=== PATIENT | female | born 1975 | race Caucasian/White ===

== ENCOUNTER 2018-06-01 09:44 | Emergency (ER) | payer BC ==
[2018-06-01 10:39] LABS: WHITE BLOOD COUNT 6.2 10^3/ul (4.8-10.8)
[2018-06-01 10:39] LABS: HEMATOCRIT 27.1 % (37.0-47.0); HEMOGLOBIN 8.9 g/dl (12.0-16.0); MEAN CORPUSCULAR HEMOGLOBIN 35.2 pg (29.0-33.0); MEAN CORPUSCULAR HGB CONC 32.8 g/dl (32.0-37.0); MEAN CORPUSCULAR VOLUME 107.1 fl (82.0-101.0); MEAN PLATELET VOLUME 10.7 fl (7.4-10.4); PLATELET COUNT 226 10^3/UL (140-415); RED BLOOD COUNT 2.53 10^6/ul (4.20-5.40); RED CELL DISTRIBUTION WIDTH 15.6 % (11.5-14.5)
[2018-06-01 10:42] LABS: ADD MAN DIFF? YES; POSITIVE DIFF @See below
[2018-06-01 10:56] LABS: ALANINE AMINOTRANSFERASE 30 IU/L (13-69); ALBUMIN 2.1 g/dl (3.3-4.9); ALBUMIN/GLOBULIN RATIO 0.56; ALKALINE PHOSPHATASE 175 IU/L (42-121); ANION GAP 6 (5-13); ASPARTATE AMINO TRANSFERASE 65 IU/L (15-46); BILIRUBIN,INDIRECT 0.3 mg/dl (0-1.1); BILIRUBIN,TOTAL 0.3 mg/dl (0.2-1.3); BLOOD UREA NITROGEN 9 mg/dl (7-20); CALCIUM 7.9 mg/dl (8.4-10.2); CARBON DIOXIDE 30 mmol/L (21-31); CHLORIDE 103 mmol/L (97-110); CREATININE 0.48 mg/dl (0.44-1.00); Estimated GFR > 60 mL/min (>60); GLUCOSE 73 mg/dl (70-220); LIPASE 64 U/L (23-300); POTASSIUM 3.9 mmol/L (3.5-5.1); SODIUM 139 mmol/L (135-144); TOTAL PROTEIN 5.8 g/dl (6.1-8.1)
[2018-06-01 11:01] LABS: ADD UMIC NO; UR ASCORBIC ACID NEGATIVE (NEGATIVE); UR BILIRUBIN (Dip) NEGATIVE (NEGATIVE); UR BLOOD (Dip) NEGATIVE (NEGATIVE); UR CLARITY CLEAR (CLEAR); UR COLOR AMBER (YELLOW); UR GLUCOSE (Dip) NEGATIVE (NEGATIVE); UR KETONES (Dip) NEGATIVE (NEGATIVE); UR LEUKOCYTE ESTERASE (Dip) NEGATIVE Leu/ul (NEGATIVE); UR NITRITE (Dip) NEGATIVE (NEGATIVE); UR SPECIFIC GRAVITY (Dip) 1.021 (1.003-1.030); UR TOTAL PROTEIN (Dip) NEGATIVE (NEGATIVE); UR UROBILINOGEN (Dip) 1+ mg/dL (NEGATIVE)
[2018-06-01 11:03] LABS: INR 1.18; PROTIME 15.2 Sec (11.9-14.9); PT RATIO 1.2
[2018-06-01 11:04] LABS: PARTIAL THROMBOPLASTIN TIME 27.8 Sec (23.0-35.0)
[2018-06-01 11:08] LABS: TROPONIN-I < 0.012 ng/ml (0.000-0.120)
[2018-06-01 11:21] LABS: ANISOCYTOSIS 1+ (0-0); ERYTHROBLAST% (NRBC) (M) 1 % (0-0); LYMPHOCYTES #M 1.1 10^3/ul (0.8-2.9); LYMPHOCYTES % (M) 18 % (15-51); MONOCYTE #M 0.7 10^3/ul (0.3-0.9); MONOCYTES % (M) 12 % (0-11); PLATELET ESTIMATE NORMAL; POIKILOCYTOSIS 1+ (0-0); POLYCHROMASIA 1+ (0-0); REACTIVE LYMPHOCYTES #M 0.5 10^3/ul (0.0-0.0); REACTIVE LYMPHOCYTES% (M) 9 % (0-0); SEGMENTED NEUTROPHILS (M) % 61 % (39-77); SMUDGE%M 14 % (0-0); TARGET CELLS 1+ (0-0)
[2018-06-01] MEDS: LIDOCAINE 1% (MPF) 5 ML VIAL (11:56)
== END 2018-06-01 13:06 | disposition home or self-care (01) ==
LOC: E/R 09:44
DX: R18.8 Other ascites (principal); M79.89 Other specified soft tissue disorders; F17.210 Nicotine dependence, cigarettes, uncomplicated; R07.9 Chest pain, unspecified
CPT/HCPCS: 36415; 71045; 80053; 81003; 81025; 83690; 84484; 85025; 85610; 85730; 99285-25